=== PATIENT | male | born 1965 | race Caucasian/White ===

== ENCOUNTER 2023-06-03 19:58 | Emergency (ER) | payer OTHER ==
[~2023-06-03] VITALS: Ht 185.4 cm; Wt 79.4 kg
[2023-06-03 20:11] VITALS: BP 121/66; TEMP 98.7; O2SAT 97
--- NOTE | 2023-06-03 20:11 | NUR ---
[facility] [place] [facility] CC OF PAIN ON LEFT LOWER LEG, HX OF LEFT FEMUR FX 3 MONTHS AGO. PATIENT IS HERE FOR [employer] [facility] [place] [facility] CC OF PAIN ON LEFT LOWER LEG, HX OF LEFT FEMUR FX 3 MONTHS AGO. PATIENT IS HERE FOR [employer]OOKING
[2023-06-03] MEDS ORDERED: KETOROLAC TROMETHAMINE INJ 30 MG/ML VIAL ONE (20:25)
[2023-06-03] MEDS ORDERED: KETOROLAC TROMETHAMINE INJ 60 MG/2 ML VIAL IM ONE (20:30)
== END 2023-06-03 20:42 | disposition home or self-care (01) ==
LOC: ER 20:07
DX: M25.552 Pain in left hip (principal); I10 Essential (primary) hypertension; Z98.890 Other specified postprocedural states
CPT/HCPCS: 99283; 96372; J1885